=== PATIENT | male | born 1995 | race Caucasian/White ===

== ENCOUNTER 2016-08-02 05:08 | Emergency (ER) | payer BC ==
[~2016-08-02] VITALS: Ht 182.9 cm; Wt 86.3 kg
[2016-08-02 06:58] LABS: EOSINOPHIL COUNT 0.2 K/uL (0-0.3); HEMATOCRIT 39.8 % (38.0-50.0); IMMATURE GRANULOCYTE (%) 0.3 % (0.0-0.7); LYMPHOCYTE COUNT 1.2 K/uL (1.0-2.8); MCH 33.4 PG (29.0-34.0); MCHC 34.7 G/DL (30.0-36.0); MCV 96.4 FL (86-99); MEAN PLAT.VOLUME 9.3 uM^3 (9.0-12.4); MONOCYTE COUNT 1.2 K/uL (0-0.8); NEUTROPHIL (%) 64.8 % (45-76); PLATELET COUNT 161 K/uL (156-360); RBC DIS.WIDTH-SD 42.8 % (39-53); RED BLOOD COUNT 4.13 M/uL (4.00-5.50); WHITE BLOOD COUNT 7.8 K/uL (4.1-10.2)
[2016-08-02 07:10] LABS: CHLORIDE 105 mEq/L (99-109); POTASSIUM 4.7 mEq/L (3.7-5.4); SODIUM 138 mEq/L (136-147)
[2016-08-02 07:12] LABS: GLUCOSE 90 mg/dL (70-99)
[2016-08-02 07:13] LABS: ANION GAP 6 MEQ/L (2-14)
[2016-08-02 07:16] LABS: GFR ESTIMATE (CALCULATED) > 59 mL/min/
[2016-08-02 07:17] LABS: UREA NITROGEN (BUN) 23 mg/dL (9-23)
[2016-08-02 07:59] LABS: ADD MIUA? NO; BILIRUBIN NEGATIVE; BLOOD NEGATIVE; COLOR STRAW ((YELLOW)); GLUCOSE (STRIP) NEGATIVE; KETONES NEGATIVE; LEUKOCYTES NEGATIVE; NITRITE NEGATIVE; PROTEIN (STRIP) NEGATIVE; SPECIFIC GRAVITY 1.013 (1.000-1.030); UROBILINOGEN 0.2 MG/DL (0.2-1.0)
[2016-08-02] MEDS ORDERED: VALTREX1000 MG PO (08:12)
[2016-08-02 08:28] VITALS: BP 128/61
== END 2016-08-02 08:29 | disposition home or self-care (01) ==
LOC: EME 05:08
PROVIDERS: Emergency Medicine
DX: A60.02 Herpesviral infection of other male genital organs (principal); Z85.850 Personal history of malignant neoplasm of thyroid
CPT/HCPCS: 80048; 81003; 85025; 87254; 99281; 99284